=== PATIENT | female | born 1985 ===

== ENCOUNTER 2022-02-24 14:36 | Outpatient (CLI) | payer OTHER, SELFPAY ==
--- NOTE | ~2022-02-24 | US_ITS ---
US thyroid INDICATION: Thyroid goiter TECHNIQUE: Real-time sonographic images of the thyroid gland were obtained. COMPARISON: No prior studies for comparison. FINDINGS: The right thyroid lobe measures 4.4 x 1.9 x 2 cm. The left thyroid lobe measures 3.4 x 1.6 x 1.6 cm. There is normal echotexture and echogenicity throughout the thyroid gland. No discrete nod ules identified. Normal vascular flow is present. IMPRESSION: 1. Normal thyroid without discrete nodule or abnormal vascularity. Reviewed, dictated and finalized at location A.
== END 2022-02-24 14:37 | disposition home or self-care (01) ==
LOC: ANHIMG 14:42
PROVIDERS: PCP Internal Medicine; Visit Provider Internal Medicine
DX: E04.9 Nontoxic goiter, unspecified (principal)
CPT/HCPCS: 76536

== ENCOUNTER 2023-06-30 08:48 | Emergency (ER) | payer OTHER, SELFPAY ==
[2023-06-30 08:51] VITALS: BP 164/90; PULSE 88; RESP 16; TEMP 36.4; O2SAT 99
--- NOTE | 2023-06-30 09:15 | ED.DENTAL ---
HPI - Dental/Oral General Chief complaint: Dental/Oral Stated complaint: toothache Time Seen by Provider: 06/30/23 09:02 History of Present Illness HPI Narrative: 38-year-old female reports for evaluation for left lower dental pain and swelling that started yesterday. Patient states she knows she has poor dentition and is scheduled for an appointment with her dentist in September. States yesterday she began starting having pain and swelling in this area. She has been using Tylenol ibuprofen without improvement. Denies fever, difficulty breathing, inability to tolerate secretions, vomiting. Related Data Allergies Allergy/AdvReac Type Severity Reaction Status Date / Time Penicillins Allergy Mild Rash Verified 06/30/23 09:31 Review of Systems Review of Systems: CONSTITUTIONAL: Denies fever, chills, or sweats. EYES: Denies visual changes, redness, or discharge. ENT: See HPI CARDIOVASCULAR: Denies chest pain, palpitations, or edema. RESPIRATORY: Denies cough or dyspnea. GASTROINTESTINAL: Denies abdominal pain, nausea, vomiting, or diarrhea. GENITOURINARY: Denies dysuria or hematuria. SKIN: Denies rash or itching. MUSCULOSKELETAL: Denies back pain, joint pain, or myalgia. NEUROLOGIC: Denies headache, numbness, or weakness. PSYCHIATRIC: Denies anxiety or depression. Exam Narrative: GENERAL: Well-appearing, well-nourished, and in no acute distress. HEAD: Normocephalic, atraumatic. EYES: PERRLA and EOMI. ENT: Nares clear, no rhinorrhea or epistaxis. Mucous membranes moist. Bilateral TMs are morales nonbulging. Poor dentition throughout. Fractured into cane teeth chamfer 18 and 17 with mandible edema and induration. No areas of fluctuation or evidence of a periapical abscess. Floor of mouth is soft without crepitus. Patient is tolerating secretions. No airway compromise. No trismus. Posterior pharynx without erythema or edema. Uvula is midline. No tonsillar hypertrophy or exudates. NECK: Supple. CHEST: Clear to auscultation. No respiratory distress. HEART: Regular rate and rhythm. No murmur heard. Normal peripheral pulses. EXTREMITIES: Normal range of motion. No edema. SKIN: Warm, dry, no rash. NEURO: No focal deficits. Alert and oriented x3 Course Vital Signs Vital signs: Vital Signs Temperature 97.6 F 06/30/23 08:51 Pulse Rate 88 06/30/23 08:51 Respiratory Rate 16 06/30/23 08:51 Blood Pressure 164/90 H 06/30/23 08:51 Pulse Oximetry 99 06/30/23 08:51 Temperature 97.6 F 06/30/23 08:51 Pulse Rate 88 06/30/23 08:51 Respiratory Rate 16 06/30/23 08:51 Blood Pressure 164/90 H 06/30/23 08:51 Pulse Oximetry 99 06/30/23 08:51 MDM - Dental/Oral MDM Narrative Medical decision making narrative: 38-year-old female reports for evaluation for left mandible dental pain x1 day. See HPI for further history. Triage vital significant for elevated blood pressure 164/90, otherwise unremarkable. Patient is afebrile. No airway compromise. She is tolerating her secretions. No trismus. Caries throughout dentition. There is pain and caries specifically to tooth #17 and #18. No evidence of periapical abscess. She reports that allergy to penicillin, will start her on clindamycin and provide a short course of [place] for pain control. Encouraged close follow-up with her dentist, will also give her referrals to see if she can get in sooner than September. Strict ED return precautions discussed. She is agreeable with the plan verbalized understanding. Discharged in stable condition. Discharge Plan Discharge Clinical Impression: Dental caries Patient Disposition: Home, Self-Care Condition: Stable Instructions: Antibiotic Form, Toothache (ED) Additional Instructions: Your evaluated in the emergency department for dental pain. I send antibiotics and pain meds to the pharmacy, please take these as directed. Please follow closely with either your dentist in September or another dentist a referred
[2023-06-30] MEDS: CLINDAMYCIN HCL 150 MG CAP 300 MG PO (09:28)
[2023-06-30] MEDS: HYDROcodone/acetaminophen (*CRX) 5-325 MG TABLET 1 TAB PO (09:28)
== END 2023-06-30 09:44 | disposition home or self-care (01) ==
PROVIDERS: Emergency Provider Physician Assistant; PCP Internal Medicine
DX: K02.9 Dental caries, unspecified (principal)
CPT/HCPCS: 99283; A9270

== ENCOUNTER 2024-11-28 18:29 | Emergency (ER) | payer OTHER, SELFPAY ==
[2024-11-28 18:50] VITALS: BP 160/102; PULSE 79; RESP 16; TEMP 36.6; O2SAT 99
--- NOTE | 2024-11-28 22:47 | PC.NURSE ---
Patient called for room assignment, not seen in waiting room or outside. Patient marked as left without being seen, triaged.
== END 2024-11-28 22:48 | disposition left against medical advice (07) ==
PROVIDERS: PCP Internal Medicine
DX: R42 Dizziness and giddiness (principal)
CPT/HCPCS: 99199